=== PATIENT | female | born 1985 | race Caucasian/White ===

== ENCOUNTER → 2016-04-06 | Outpatient (CLI) | payer OTHER | LOC: FIMAGING 12:10 | PROVIDERS: ATTEND Family Medicine | DX: Z12.31 Encounter for screening mammogram for malignant neoplasm of breast (principal); Z80.3 Family history of malignant neoplasm of breast ==

== ENCOUNTER 2016-08-04 00:47 | Emergency (ER) | payer OTHER ==
[2016-08-04 00:53] VITALS: BP 159/103; PULSE 115; RESP 16; TEMP 98.2; O2SAT 96
[2016-08-04] MEDS ORDERED: BENZOCAINE UNIT DOSE SPRAY HURRICAINE MM ONE ×2 (01:08→01:23)
--- NOTE | 2016-08-04 01:26 | EDPHY ---
H & P Stated Complaint: feels like something is stuck in throat Time Seen by Provider: 08/04/16 01:00 HPI/ROS: Chief Complaint: Feels like foreign body in throat HPI: 31-year-old woman was out to dinner tonight, a chicken wings a salad. She came home, have a couple drinks at home. She then got the sensation of something lodged in her throat. She states she has sharp pain whenever she spoke on the left side of her throat, almost catching as she was talking. This continued when she was speak at a higher pitch. Patient states that upon arriving to the emergency department her symptoms have improved. She now can speak without causing any pain. She does have the mouth and sensation of a foreign body in her throat. No difficulty breathing. No cough. Does not recall having a choking episode or feeling anything sharp while she was eating earlier. No nausea or vomiting. ROS: 10 point Review of Systems is negative except as noted in the HPI. PMH: None Medications: None Allergies: No known drug allergies Social History: No smoking, occasional alcohol, no recreational drug use Family History: non-contributory Physical Exam: Gen: Awake, Alert, No Distress HEENT: Nose: no rhinorrhea Eyes: PERRLA, EOMI Mouth: Moist mucosa oropharynx is clear. I am able to visualize her oropharynx, tonsillar pillars. There is no foreign body. There is no abrasion or erythema. There is no discharge. Neck: Supple, no JVD, nontender, no swelling Ext: no edema, non-tender Skin: no rash Neuro: CN II-XII intact, Sensation grossly intact, Strength 5/5 in bilateral upper and lower extremities - Personal History LMP (Females 10-55): Over 28 Days Ago Current Tetanus/Diphtheria Vaccine: Unsure - Medical/Surgical History Hx Asthma: No Hx Chronic Respiratory Disease: No Hx Diabetes: No Hx Cardiac Disease: No Hx Renal Disease: No Hx Cirrhosis: No Hx Alcoholism: No Hx HIV/AIDS: No Hx Splenectomy or Spleen Trauma: No Other PMH: PSHx: denies. PMHx: denies - Social History Smoking Status: Never smoked Constitutional: Initial Vital Signs Temperature (C) 36.8 C 08/04/16 00:49 Heart Rate 115 H 08/04/16 00:49 Respiratory Rate 16 08/04/16 00:49 Blood Pressure 159/103 H 08/04/16 00:49 O2 Sat (%) 96 08/04/16 00:49 O2 Delivery Mode Room Air Allergies/Adverse Reactions: No Known Allergies Allergy (Unverified 08/04/16 00:49) Home Medications: Medication Instructions Recorded NK [No Known Home Meds] 08/04/16 Medical Decision Making Procedures: Procedure: Nasopharyngoscopy Indication: Sensation of foreign body in throat. The patient was anesthetized with 1% lidocaine with epinephrine atomized in her right near. She has also noticed denies in the oropharynx with Hurricaine spray. A fiberoptic video nasopharyngeal scope was introduced into her right near. I was able to fully visualize a normal epiglottis, normal arytenoids, normal vocal cords with normal movement with phonation. There are no foreign bodies visualized. There are no abrasions or ulcerations. The patient tolerated the procedure well. There were no complications. Procedure was performed by me. Departure - Departure Disposition: Home, Routine, Self-Care Clinical Impression: Throat pain Condition: Good Instructions: Foreign Body in Pharynx (ED) Additional Instructions: Follow up with primary care physician in 2-3 days for re-evaluation. Return to the emergency depart for increasing pain, difficulty swelling, difficulty breathing, or any other concerns. Referrals: Cheyenne Velsaquez MD [Primary Care Provider] - As per Instructions
== END 2016-08-04 01:35 | disposition home or self-care (01) ==
DX: R07.0 Pain in throat (principal)